=== PATIENT | female | born 1960 ===

== ENCOUNTER → 2025-02-13 | Outpatient (CLI) | payer OTHER ==
[2025-02-13 18:34] LABS: Creatinine, Urine Random 116.0 mg/dL (27.00-270.00); Microalbumin, Random Urine 11.5 mg/L (0.000-20.000)
== END ==
LOC: LAB 10:32 → LAB SHORT 10:32
PROVIDERS: Physician Assistant
DX: E11.59 Type 2 diabetes mellitus with other circulatory complications (principal); E11.69 Type 2 diabetes mellitus with other specified complication
CPT/HCPCS: 82043; 82570